=== PATIENT | male | born 1990 | race Caucasian/White ===

== ENCOUNTER 2018-03-27 19:18 | Emergency (ER) | payer OTHER ==
[2018-03-27] MEDS ORDERED: AMPICILLIN SOD/SULBACTAM 3 GM VIAL IV ONE (20:10)
[2018-03-27] MEDS ORDERED: FENTANYL CITRATE INJ/PF 100 MCG/2 ML AMPUL IV ONE (20:10)
[2018-03-27] MEDS ORDERED: LIDOCAINE 1% INJ-PF (10 MG/ML) 30 ML SDV INJ ONE (20:11)
--- NOTE | 2018-03-27 20:13 | ER Document Report ---
ED Medical Screen (RME) - General Chief Complaint: Dog Bite Stated Complaint: DOG BITE Time Seen by Provider: 03/27/18 19:45 Notes: Patient was working with his dog which bit him in the left hand. Second digit on the left hand is deformed. Puncture cho into the finger. Significant amount of pain and deformity. Unable to bend finger. Few small bite cho on the right hand as well. Dog is up-to-date on shots and immunizations. I have greeted and performed a rapid initial assessment of this patient. A comprehensive ED assessment and evaluation of the patient, analysis of test results and completion of the medical decision making process will be conducted by additional ED providers. - Related Data Allergies/Adverse Reactions: bee venom protein (honey bee) Allergy (Verified 03/27/18 19:23) Past Medical History - Social History Chew tobacco use (# tins/day): No Frequency of alcohol use: Occasional Drug Abuse: None Renal/ Medical History: Denies: Hx Peritoneal Dialysis Physical Exam - Vital signs Vitals: Temp Pulse Resp BP Pulse Ox 98.3 F 70 20 124/74 98 03/27/18 19:40 03/27/18 19:40 03/27/18 19:40 03/27/18 19:40 03/27/18 19:40 - Extremities General upper extremity: Other - The second digit on the left hand with puncture maurice in the webspace between the second and third digit. There is a deformity of the second digit with ulnar deviation. Neurovascularly intact. Sensation intact. General lower extremity: No: Maximiliano's sign Course - Vital Signs Vital signs: Temp Pulse Resp BP Pulse Ox 98.3 F 70 20 124/74 98 03/27/18 19:40 03/27/18 19:40 03/27/18 19:40 03/27/18 19:40 03/27/18 19:40
--- NOTE | 2018-03-27 20:54 | RADIOLOGY REPORT (SQ) ---
EXAM DESCRIPTION: HAND LEFT 2 VIEWS COMPLETED DATE/TIME: 03/27/2018 8:40 pm REASON FOR STUDY: dog bite, deformity left 2nd digit COMPARISON: None. EXAM PARAMETERS: NUMBER OF VIEWS: Three views. TECHNIQUE: AP, lateral, and oblique images acquired of the left second finger . LIMITATIONS: None. FINDINGS: MINERALIZATION: Normal. BONES: A mildly displaced comminuted fracture is seen of the 2nd digit proximal phalanx. SOFT TISSUES: Punctate foci of subcutaneous gas are consistent with open fracture. No retained radio paque foreign body is visualized. OTHER: No other significant finding. IMPRESSION: Mildly displaced comminuted fracture of the 2nd digit proximal phalanx with collateral f indings suggesting open fracture. COMMENT: SITE OF TRAUMA/COMPLAINT MARKED/STAMP COMPLETED: YES. TECHNICAL DOCUMENTATION: JOB ID: [id number] [employer]- All Rights Reserved Reading location - IP/workstation name: [email or web address]
[2018-03-27] MEDS ORDERED: ONDANSETRON ODT 4 MG TAB (6 TAB/ER DISP) PO PRN (23:20)
[2018-03-27] MEDS ORDERED: HYDROCODONE/ACETAMINOPHEN 5-325 MG (6 TAB/ER DISP) PO PRN (23:20)
[2018-03-27] MEDS ORDERED: AMOXICILLIN TRIHYDRATE 500 MG CAPSULE PO ONE (23:21)
[2018-03-27] MEDS ORDERED: AMOXICILLIN TR/POT CLAVULANATE 500-125 MG TAB PO ONE (23:21)
--- NOTE | 2018-03-27 23:22 | ER Document Report ---
ED General - General Mode of Arrival: Ambulatory Information source: Patient - General Chief Complaint: Dog Bite Stated Complaint: DOG BITE Time Seen by Provider: 03/27/18 19:45 Notes: Patient is a 27-year-old male who presents with a dog bite to his left hand that occurred just prior to arrival. Patient's left hand has a puncture to the webspace between the second and third digit. There is also a dislocation of the second digit with obvious deformity. Patient's right hand has multiple abrasions. Patient reports that he was breaking up a dog fight between his 2 dogs. Patient reports that his dogs immunizations are up-to-date and they are current on their rabies vaccines. Patient reports that he is right-hand dominant. Patient reports that his tetanus is up-to-date. Patient denies any significant past medical history. (SYMONE RAMIREZ) - Related Data Allergies/Adverse Reactions: bee venom protein (honey bee) Allergy (Verified 03/27/18 19:23) Past Medical History - General Information source: Patient - Social History Smoking Status: Current Some Day Smoker Chew tobacco use (# tins/day): No Frequency of alcohol use: Occasional Drug Abuse: None Family History: Reviewed & Not Pertinent Patient has suicidal ideation: No Patient has homicidal ideation: No - Medical History Medical History: Negative Renal/ Medical History: Denies: Hx Peritoneal Dialysis Past Surgical History: Reports: Hx Urinary Tract Surgery - Immunizations Immunizations up to date: Yes Hx Diphtheria, Pertussis, Tetanus Vaccination: Yes Review of Systems - Review of Systems Constitutional: No symptoms reported EENT: No symptoms reported Cardiovascular: No symptoms reported Respiratory: No symptoms reported Gastrointestinal: No symptoms reported Genitourinary: No symptoms reported Male Genitourinary: No symptoms reported Musculoskeletal: See HPI Skin: See HPI Hematologic/Lymphatic: No symptoms reported Neurological/Psychological: No symptoms reported Physical Exam - Vital signs Vitals: Temp Pulse Resp BP Pulse Ox 98.3 F 70 20 124/74 98 03/27/18 19:40 03/27/18 19:40 03/27/18 19:40 03/27/18 19:40 03/27/18 19:40 - Notes Notes: PHYSICAL EXAMINATION: GENERAL: Well-appearing, well-nourished and in no acute distress. HEAD: Atraumatic, normocephalic. EYES: Pupils equal round and reactive to light, extraocular movements intact, sclera anicteric, conjunctiva are normal. ENT: Nares patent, oropharynx clear without exudates. Moist mucous membranes. NECK: Normal range of motion, supple without lymphadenopathy LUNGS: Breath sounds clear to auscultation bilaterally and equal. No wheezes rales or rhonchi. HEART: Regular rate and rhythm without murmurs ABDOMEN: Soft, nontender, nondistended abdomen. No guarding, no rebound. No masses appreciated. Musculoskeletal: Limited range of motion to left second digit secondary to swelling and digit appears mildly displaced. Capillary refill less than 3 seconds, normal sensation and normal motor function. NEUROLOGICAL: Cranial nerves grossly intact. Normal speech, normal gait. Normal sensory, motor exams PSYCH: Normal mood, normal affect. SKIN: Multiple superficial bites vs abrasions to patient's bilateral hands, approximate 1 cm puncture wound to patient's left hand at the webspace between his second and third digit. Otherwise skin Warm, Dry, normal turgor, no rashes or lesions noted. (SYMONE RAMIREZ) Course - Re-evaluation Re-evalutation: 03/27/18 23:23 I have seen and examined the patient. This is a right-handed 27-year-old male that sustained a bite to the left second finger. Patient has puncture wounds to the ulnar aspect dorsally over the proximal phalanx and puncture on the volar aspect of the finger. X-rays show a comminuted transverse fracture through the proximal phalanx. The case was discussed with Dr. garcia of orthopedics who was recommended washing out the wound here, antibiotics and following up in the office on Thursday for outpatient surgery. The patient is active duty in the case was discussed with the orthopedic surgeon at [facility] and he agreed with this plan. The patient received IV Unasyn and will be sent home on Augmentin. The wound was washed out. Tetanus is up-to-date. And the dog's rabies and other vaccinations is up-to-date as per the patient ( it was his dog). (MARC GARCIA) 27-year-old male patient with a dog bite to left hand. Patient was initially seen by provider in triage who initiated order sets. Patient was given fentanyl 100 mcg with adequate pain relief. Patient started on Unasyn 3 g IV. X-ray was performed of the left hand and shows a mildly displaced comminuted fracture of the second digit proximal phalanx with collateral findings suggesting open fracture. I performed a digital block of the left second digit and then did a thorough cleaning with chlorhexidine brush and irrigated puncture wound with normal saline. Patient tolerated this procedure well. Spoke with Dr. Garcia, orthopedic on-call who recommends that patient be given IV antibiotics and have the wound irrigated which was already performed. He further recommends p.o. antibiotics and follow-up with Dr. Whitman first thing Thursday morning. Patient and are agreeable to this plan. The wound will be left open as it is approximately 1 cm or less in length at the main puncture site. There is mild bleeding. I will place a Xeroform gauze and then place a bulky dressing over this. Patient given ED return precautions. Patient and verbalized understanding and agreement with plan of care. (SYMONE RAMIREZ) - Vital Signs Vital signs: Temp Pulse Resp BP Pulse Ox 98.3 F 70 20 124/74 98 03/27/18 19:40 03/27/18 19:40 03/27/18 19:40 03/27/18 19:40 03/27/18 19:40 Procedures - Laceration/Wound Repair Left 2nd digit Wound length (cm): 1 Wound's Depth, Shape: Other - Puncture Laceration pre-procedure: Sterile PPE donned Anesthetic type: 1% Lidocaine - Used for digital block Volume Anesthetic (mLs): 6 Irrigated w/ Saline (mLs): 100 - Wound irrigated Post-procedure NV exam normal: Yes Complications: No Discharge - Discharge Clinical Impression: Dog bite Qualifiers: Encounter type: initial encounter Qualified Code(s): W54.0XXA - Bitten by dog, initial encounter Open fracture of phalanx of finger of left hand Qualifiers: Encounter type: initial encounter Finger: index finger Phalanx: proximal Fracture alignment: displaced Qualified Code(s): S62.611B - Displaced fracture of proximal phalanx of left index finger, initial encounter for open fracture Condition: Stable Disposition: HOME, SELF-CARE Additional Instructions: Animal Bites Animal bites are often heavily contaminated with bacteria. In spite of thorough cleansing and proper treatment, these wounds frequently become infected. Bite wounds of the hands are especially prone to complications. Bites are dressed, if possible. Large wounds may require suturing after internal cleansing. Because of infection risk, some large wounds must remain unstitched. Your doctor is trained to advise you on the best treatment for your bite. Call the doctor at once if the wound becomes red, swollen, warm, increasingly painful, or if it begins to drain. Danger signs also include red streaks up the involved extremity, swollen glands in the groin or under the arm , or fever and chills. The risk of rabies from domestic animals is very low. Fractured Finger There is a fracture in your finger. The bone is straight and in good position to heal. The doctor has assessed the seriousness of the fracture and has explained your treatment plan. Usually the finger will be splinted until fracture healing is complete. This is usually about three or four weeks. At that time, the injured finger may be taped to the next finger to provide a moving splint for longer protection. The first few days after the injury, the finger should be kept elevated and cold (with ice packs). This decreases the swelling and pain. You should contact the doctor or return at once if pain or swelling become severe, or if the finger becomes numb. Some degree of bruising is normal with a finger fracture. You were given a dose of IV antibiotics in the emergency department. The wound was cleaned and irrigated with saline. Please take oral antibiotics as directed. Keep the wound clean and dry. Use pain medication as needed. Ice and elevation may help with the pain and swelling. Follow up Thursday with Dr. Whitman in his office. Return to the emergency department for worsening pain, redness, swelling or foul smelling drainage. Prescriptions: Amox Tr/Potassium Clavulanate [Augmentin 875-125 mg Tablet] 1 tab PO BID #20 tablet Referrals: JIMMIE WHITMAN, [ACTIVE STAFF] - Follow up as needed
[2018-03-28 00:15] VITALS: BP 117/65
== END 2018-03-28 00:09 | disposition home or self-care (01) ==
LOC: ER 19:18
DX: S62.611B Displaced fracture of proximal phalanx of left index finger, initial encounter for open fracture (principal); S60.571A Other superficial bite of hand of right hand, initial encounter; W54.0XXA Bitten by dog, initial encounter; Y93.K9 Activity, other involving animal care; Y92.009 Unspecified place in unspecified non-institutional (private) residence as the place of occurrence of the external cause; F17.200 Nicotine dependence, unspecified, uncomplicated; Z91.030 Bee allergy status
CPT/HCPCS: 99283; 96375; 96365; 73120; 64450; J3010; J0295; J3490